=== PATIENT | female | born 1960 | race Caucasian/White ===

== ENCOUNTER → 2018-03-12 17:30 | Outpatient (CLI) | payer OTHER, SELFPAY | PROVIDERS: Visit Provider Obstetrics & Gynecology | DX: N32.81 Overactive bladder (principal) | CPT/HCPCS: 87086 ==

== ENCOUNTER → 2018-04-06 13:00 | Outpatient (CLI) | payer OTHER, SELFPAY | PROVIDERS: Visit Provider Obstetrics & Gynecology | DX: N95.0 Postmenopausal bleeding (principal) | CPT/HCPCS: 76830; 76856; 93976 ==

== ENCOUNTER → 2018-04-17 09:58 | Outpatient (CLI) | payer OTHER, SELFPAY ==
--- NOTE | 2018-04-16 | EMB_PTH ---
PATIENT: ROBBIN TINEO LOC: [facility] U#:[id number] AGE/SX: 65/F ROOM: RE04/17/[address]: Dr. Gautam Rivera MD : 1960 BED: DIS: SPEC #: [id number] RECD: 04/16/18 23:38 STATUS: SHAJI REArlin #: [id number] YEFRI: 04/16/18 00:[address]: Gautam Rivera DEPT: SURGICAL PATHOLOGY RECD BY: Shawn Harvey ENTERED: 04/17/18 10:31 SP TYPE: ENDOM BX/C BEENA DR: Dr. Lidia Segura MD Tissues: Endometrium, NOS Procedures: Surgery Specimen Level IV HEADER OPERATION: Endometrial biopsy PRE-OP DIAGNOSIS: Postmenopausal bleeding TISSUE SUBMITTED: Endometrial lining MICROSCOPIC DIAGNOSIS Endometrium, biopsy: Rare strips of benign, superficial endometrium and mucus. AM:deric 04/20/18 MICROSCOPIC DESCRIPTION Slides are reviewed. GROSS DESCRIPTION Received is one container labeled with the patient's name and not further designated. The specimen consists of multiple irregular fragments of pink-red soft tissue measuring in aggregate 2.5 x 1.5 x 0.1 cm. The specimen is totally submitted in one cassette. MATIAS:deric 04/17/18 TC: 5 CPT: 54934
== END ==
PROVIDERS: Visit Provider Obstetrics & Gynecology
DX: N95.0 Postmenopausal bleeding (principal)
CPT/HCPCS: 88305

== ENCOUNTER → 2018-10-05 14:54 | Outpatient (CLI) | payer OTHER, SELFPAY ==
--- NOTE | 2018-10-05 14:57 | BI_ITS ---
MAMMOGRAPHY - BILATERAL SCREENING REASON FOR EXAM: Female, 58 years old. Routine annual screening examination. PERTINENT HISTORY: Mother with breast cancer. Aunt with breast cancer. TECHNIQUE: Digital bilateral breast maty (3D mammographic acquisition) in the CC and MLO projections. 2-D mediolateral oblique (MLO) and craniocaudad (CC) views of both breasts were obtained. CAD: Full Field Digital Mammography with Computer Added Detection was performed. COMPARISON: No comparison mammograms available at this time. If any prior films become available, an addendum to this report can be generated. FINDINGS: Breast Composition: There are scattered areas of fibroglandular density. There are no dominant masses or suspicious calcifications. Benign appearing bilateral axillary lymph nodes. No other significant abnormalities are identified. BI/SCREENING MAMM (CAD), BILAT IMPRESSION: Negative screening mammogram. Yearly followup mammogram recommended. (A) ASSESSMENT CATEGORY: BIRADS Category 2: Benign. A letter regarding these results will be sent to the patient by the facility within 30 days. Approximately 10% of breast cancers are not detected by mammography. A normal mammogram should not delay biopsy of a clinically suspicious abnormality. [id number] Electronically Signed: Charly Varela, at 14:55 EST , Service support ,
== END ==
PROVIDERS: Referring Provider Obstetrics & Gynecology; Visit Provider Obstetrics & Gynecology
DX: Z12.31 Encounter for screening mammogram for malignant neoplasm of breast (principal)
CPT/HCPCS: 77063; 77067

== ENCOUNTER → 2019-02-16 13:22 | Outpatient (CLI) | payer OTHER, SELFPAY ==
[2019-02-04 11:01] VITALS: BMI 35.6
--- NOTE | 2019-02-16 13:25 | US_ITS ---
STUDY: ULTRASOUND OF THE FEMALE PELVIS - COMPLETE CLINICAL: Female, 59 years old. Postmenstrual bleeding, pelvic pain, fibroids. LMP: Unknown. TECHNIQUE: Transabdominal and Transvaginal, the latter used to optimize detail. TECHNICAL QUALITY: Adequate. COMPARISON: Ultrasound April 06, 2018. FINDINGS: The uterus is anteverted and is in a midline position. The uterus measures 12.3 x 6.2 x 6.5 cm. There are small Nabothian cysts of the cervix. The endometrium measures 6 mm in thickness, and is hyperechoic. There is no demonstrated endometrial mass. There are too numerous to count incompletely defined heterogeneous masses in the myometrium consistent with fibroids. The first measured is in the right anterior upper body of the uterus, measuring 2.6 x 2.9 x 1.6 cm. Another is in the right fundus, measuring 2.0 x 1.7 x 2.1 cm. A third is a subserosal posterior fundal fibroid measuring 3.2 x 3.5 x 3.0 cm. A fourth is a left-sided fibroid in the body of the uterus that contains a few macrocalcifications, measuring 2.8 x 3.1 x 3.6 cm. I.U.D. - The patient does not have an I.U.D. The right ovary is visualized. The right ovary measures 3.9 x 3.0 x 2.8 cm. There is no right ovarian cyst or ovarian mass. There is no visualized right adnexal mass or complex lesion. There is normal arterial and normal venous vascularity. The left ovary is visualized. The left ovary measures 6.1 x 4.4 x 4.0 cm. This includes an eccentrically positioned 2.3 x 3.7 x 1.9 cm cyst. There is no visualized left adnexal mass or complex lesion. There is normal arterial and normal venous vascularity. There is no fluid in the cul-de-sac. The pre void volume of the bladder was 141 ml. Polycystic ovary disease: No. US/Transvaginal Non- IMPRESSION: 1. Enlarged, fibroid uterus, as noted. 2. 3.7 cm left ovarian cyst. The right ovary is unremarkable. Electronically Signed: Migel Kong MD at 15:20 EDT , Service support ,
--- NOTE | 2019-02-16 13:25 | US_ITS ---
STUDY: ULTRASOUND OF THE FEMALE PELVIS - COMPLETE CLINICAL: Female, 59 years old. Postmenstrual bleeding, pelvic pain, fibroids. LMP: Unknown. TECHNIQUE: Transabdominal and Transvaginal, the latter used to optimize detail. TECHNICAL QUALITY: Adequate. COMPARISON: Ultrasound April 06, 2018. FINDINGS: The uterus is anteverted and is in a midline position. The uterus measures 12.3 x 6.2 x 6.5 cm. There are small Nabothian cysts of the cervix. The endometrium measures 6 mm in thickness, and is hyperechoic. There is no demonstrated endometrial mass. There are too numerous to count incompletely defined heterogeneous masses in the myometrium consistent with fibroids. The first measured is in the right anterior upper body of the uterus, measuring 2.6 x 2.9 x 1.6 cm. Another is in the right fundus, measuring 2.0 x 1.7 x 2.1 cm. A third is a subserosal posterior fundal fibroid measuring 3.2 x 3.5 x 3.0 cm. A fourth is a left-sided fibroid in the body of the uterus that contains a few macrocalcifications, measuring 2.8 x 3.1 x 3.6 cm. I.U.D. - The patient does not have an I.U.D. The right ovary is visualized. The right ovary measures 3.9 x 3.0 x 2.8 cm. There is no right ovarian cyst or ovarian mass. There is no visualized right adnexal mass or complex lesion. There is normal arterial and normal venous vascularity. The left ovary is visualized. The left ovary measures 6.1 x 4.4 x 4.0 cm. This includes an eccentrically positioned 2.3 x 3.7 x 1.9 cm cyst. There is no visualized left adnexal mass or complex lesion. There is normal arterial and normal venous vascularity. There is no fluid in the cul-de-sac. The pre void volume of the bladder was 141 ml. Polycystic ovary disease: No. US/Pelvic (Non ) IMPRESSION: 1. Enlarged, fibroid uterus, as noted. 2. 3.7 cm left ovarian cyst. The right ovary is unremarkable. Electronically Signed: Migel Kong MD at 15:20 EDT , Service support ,
== END ==
PROVIDERS: Referring Provider Obstetrics & Gynecology; Visit Provider Obstetrics & Gynecology
DX: D25.9 Leiomyoma of uterus, unspecified (principal); N95.0 Postmenopausal bleeding; R10.2 Pelvic and perineal pain
CPT/HCPCS: 76830; 76856; 93976

== ENCOUNTER → 2019-04-14 17:05 | Outpatient (CLI) | payer OTHER, SELFPAY ==
--- NOTE | 2019-04-14 | EMB_PTH ---
PATIENT: ROBBIN TINEO LOC: [facility] U#:[id number] AGE/SX: 65/F ROOM: RE04/14/[address]: ZONIA Bauer : 1960 BED: DIS: SPEC #: [id number] RECD: 04/14/19 16:25 STATUS: SHAJI RAFAT #: [id number] YEFRI: 04/14/19 00:[address]: Rylee Hinson NP DEPT: SURGICAL PATHOLOGY RECD BY: Som Diaz ENTERED: 04/15/19 07:40 SP TYPE: ENDOM BX/C BEENA DR: Dr. Lidia Segura MD Tissues: Endometrium, NOS Procedures: Surgery Specimen Level IV HEADER OPERATION: Endometrial biopsy PRE-OP DIAGNOSIS: Postmenopausal bleeding TISSUE SUBMITTED: Endometrial biopsy MICROSCOPIC DIAGNOSIS Endometrial biopsy: Fragments of superficial benign endometrial tissue. Fragments of benign ecto- and endocervical epithelium. Negative for hyperplasia. SJ:chayito 04/16/19 COMMENT Correlation with clinical findings and appropriate follow up are necessary. MICROSCOPIC DESCRIPTION Slides are reviewed. GROSS DESCRIPTION Received is one container labeled with the patient's name and not further designated. The specimen consists of multiple fragments of hemorrhagic soft tissue mixed with mucoid tissue that in aggregate measure 2 x 2 x 0.2 cm. The specimen is totally submitted in one cassette. / SJ:chayito 04/15/19 TC:4 CPT: 60046
[2019-04-14 15:44] VITALS: BMI 36.6
== END ==
PROVIDERS: Referring Provider Nurse Practitioner Women's Health; Visit Provider Nurse Practitioner Women's Health
DX: N95.0 Postmenopausal bleeding (principal)
CPT/HCPCS: 88305

== ENCOUNTER 2019-07-13 05:26 | Day surgery (SDC) | payer OTHER, SELFPAY ==
[2019-02-04 11:01] VITALS: BMI 35.6
[2019-06-28 12:06] VITALS: BMI 36.6
--- NOTE | 2019-07-12 10:00 | EKG12_ITS ---
Test Reason : PRE-OP Blood Pressure : / mmHG Vent. Rate : 060 BPM Atrial Rate : 060 BPM P-R Int : 174 ms QRS Dur : 082 ms QT Int : 406 ms P-R-T Axes : 048 008 031 degrees QTc Int : 406 ms Normal sinus rhythm Cannot rule out Inferior infarct , age undetermined Abnormal ECG Confirmed by ZAKIYA BUTLER, GABBI ([id number]), supervising editor trailer IMTIAZ TREJO ([id number]) on 07/13/2019 11:48:47 AM Referred By: Wanda Palma Confirmed By:GABBI SIGALA MD
[2019-07-12 10:57] LABS: Hematocrit 40.2 % (37-47); Hemoglobin 13.5 g/dL (12.0-15.0); Mean Corp Hgb Conc 33.6 g/dL (32-36); Mean Corpuscular Hgb 29.5 pg (27.0-32.0); Mean Platelet Vol. 9.7 fl (6.2-12.0); Platelet Count 259 K/mm3 (150-450); RBC Distribution Width CV 12.9 % (11.6-14.6); RBC Distribution Width SD 41.3 fl (35.1-43.9); Red Blood Count 4.57 M/mm3 (4.2-5.4); White Blood Count 8.4 K/mm3 (4.4-11.0)
[2019-07-13] VITALS (15 sets, daily range): BP systolic 104–155; BP diastolic 59–84; PULSE 64–95; RESP 16–18; TEMP 36.1–37; O2SAT 94–100; BMI 36.9
--- NOTE | 2019-07-13 04:43 | PCM.HPOB.BLA ---
- Problem List (1) Left ovarian cyst Status: Acute Comment: 3.7 cm- remove ovary if still present. (2) Lichen sclerosus Status: Acute (3) Overactive bladder Status: Acute Comment: no treatment at this time due to cost (4) Post-menopausal bleeding Status: Acute Comment: normal biposy likely secondary to fibroids. (5) Uterine fibroid Status: Acute Qualifiers: Comment: plan L[facility] BS and possible left oophorectomy cysto History and Physical Date of Admission: 07/13/19 Intake Vital Signs 06/28/19 Body Mass Index (BMI) 36.6 06/28/19 Height 5 ft 1 in 06/28/19 Weight: 193 lb 4 oz 06/28/19 Body Mass Index (BMI) 36.5 06/28/19 Blood Pressure 150/80 H Intake Visit Reasons: MAREK CONNORS RS [employer] Room Dental Technician Required: No Is patient in pain?: No Allergies No Known Allergies Allergy (Verified 06/28/19 12:06) Medications clobetasol 0.05 % topical ointment 1 applic TOPICAL QHS #30 g 02/04/19 [Rx Confirmed 06/28/19] mirabegron ER 25 mg tablet,extended release 24 hr 25 mg PO DAILY 04/14/19 [History Confirmed 06/28/19] Is last menstrual period known: No Post menopausal: No Patient : No : [facility] History Carpal tunnel syndrome of right wrist (Acute) History of 2 sections (Acute) History of knee replacement procedure of right knee (Acute) S/P arthroscopic surgery of left knee (Acute) Family History Mother Breast cancer Hypertension Diabetes Heart disease Brother Cancer Myocardial infarction Father Diabetes Social History (Updated 06/28/19 @ 12:17 by Wanda Palma MD) number of children: 3 current occupational status: employed current occupation: [employer] in [employer] Smoking Status: Never smoker alcohol intake: never substance use type: does not use diet: other caffeine: Yes what type of physical activity do you participate in: none seatbelt use: always do you feel safe at home: Yes 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 she has an enlarged uterus with multiple fibroids. she has some urinary issues and has seen urogyn for this. Pregancy History 4 Elective abortions Hx Para 3 Spontaneous abortions Hx # Term Pregnancies Ectopic pregnancies Hx # Pregnancies Multiple births # of living children 3 Past Pregnancies Del. Date Name GA/Weeks Outcome Route Bth Weight Infant Gen Labor Lgth Anesthesia Del Locatn Provider FOB Unknown Bren 1982 Unknown Greer 1985 Unknown Daniela 1990 ROS Const Constitutional: Denies fatigue, fever(s), headache(s), increased appetite, poor appetite, weight gain or weight loss Cardio Card: Denies chest pain Resp Resp: Denies cough or dyspnea GI GI: Reports as per HPI; denies abdominal pain, constipation, nausea or vomiting : Reports urinary frequency, urinary incontinence and urinary urgency; denies nipple discharge Skin Skin/Breast: Denies nipple discharge Exam Const General: cooperative, healthy appearing, comfortable, no acute distress, well developed Orientation: alert HENMT Head: normal to inspection, normocephalic Neck Neck: normal visual inspection, trachea midline Thyroid: thyroid normal Resp Effort & Inspection: normal respiratory effort GI Inspection: normal to inspection, non-distended Palpation: soft, no hepatosplenomegaly General: bladder normal to palpation External Female Exam: normal appearance of the urethra Urethra: normal appearance of the urethra Speculum Exam - Vagina: normal appearance of the vagina, normal vaginal discharge Speculum Exam - Cervix: normal appearance of the cervix, nontender Bimanual Exam- Vagina & Uterus: bladder normal to palpation, No cervical tenderness Bimanual Exam- Adnexa, other: normal adnexae, adnexae mobile, no adnexal masses, pelvic support normal Pelvic Support: normal Other: left white lesion Skin General: no rashes or lesions noted Assessment & Plan Problems 1. Overactive bladder N32.81 no treatment at this time due to cost 2. Post-menopausal bleeding N95.0 normal biposy likely secondary to fibroids. 3. Intramural and submucous leiomyoma of uterus D25.1; D25.0 plan [facility] BS and possible left oophorectomy cysto 4. Lichen sclerosus L90.0 5. Left ovarian cyst N83.202 3.7 cm- remove ovary if still present. Plan After discussing the patient's diagnosis and treatment plan options, patient wishes to proceed with surgical management. I have discussed with the patient the risks, benefits, and alternatives of the procedure which include but are not limited to risks of anesthesia, bleeding, infection, possible damage to bowel, bladder, or surrounding vasculature which could lead to additional surgery to evaluate any complications. Patient agrees to procedure and wishes to proceed. ACOG/uptodate references given for additional information regarding procedure. Coding Level of Care Code No Charge Diagnoses Overactive bladder N32.81 Post-menopausal bleeding N95.0 Intramural and submucous leiomyoma of uterus D25.1; D25.0 ??Uterine leiomyoma location: intramural and submucous Lichen sclerosus L90.0 Left ovarian cyst N83.202 UPDATE- I have seen the patient and performed any clinically relevant updates to the history and physical exam. Wanda Palma MD
[2019-07-13] MEDS: Enoxaparin 40 MG/0.4 ML Syringe SC (05:30)
[2019-07-13] MEDS: Scopolamine 1mg/72hr Patch 1 PATCH TRANSDERM. (05:30)
[2019-07-13] MEDS: dexAMETHasone 10 MG/ML Vial 8 MG IV (05:30)
[2019-07-13] MEDS: Celecoxib 200 MG Capsule 400 MG PO (05:30)
[2019-07-13] MEDS: Magnesium Sulfate 4gm/100mL 4 GM/100 ML IV.SOLN. IV (06:01)
[2019-07-13] MEDS: Lactated Ringers 1,000 ML 40 ML IV (06:02)
[2019-07-13] MEDS: Acetaminophen 500 MG Tablet 1000 MG PO ×3 (06:05→17:56)
[2019-07-13] MEDS: Phenazopyridine 95 MG Tablet 190 MG PO (06:05)
[2019-07-13] MEDS: Gabapentin 600 MG Tablet PO (06:06)
[2019-07-13 06:35] LABS: Bedside Glucose 64 mg/dL (70-110)
--- NOTE | 2019-07-13 07:30 | HYST_PTH ---
PATIENT: ROBBIN TINEO LOC[place] [facility] [place][id number] AGE/SX: 59/F ROOM: RE07/13/[address]: Dr. Wanda Palma MD : 1960 BED: DIS: 07/14/2019 SPEC #: [id number] RECD: 07/13/19 11:51 STATUS: SHAJI REArlin #: [id number] YEFRI: 07/13/19 07:[address]: Wanda Palma DEPT: SURGICAL PATHOLOGY RECD BY: Som Diaz ENTERED: 07/13/19 12:28 SP TYPE: HYSTERECT OTHR DR: MD Dr. Lidia Thao MD Tissues: Uterus, NOS Procedures: Surgery Specimen Level V HEADER OPERATION: ERAS, laparoscopic assisted vaginal hysterectomy PRE-OP DIAGNOSIS: Abnormal uterine bleeding, fibroids, left ovarian cyst TISSUE SUBMITTED: Uterus, cervix, bilateral fallopian tubes, left ovary MICROSCOPIC DIAGNOSIS Uterus, hysterectomy: Cervix - mild chronic inflammation. Endometrium - weakly proliferative endometrium. Myometrium - leiomyomas with degenerative change. Right and left fallopian tubes - no significant pathologic change. 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 AM:chayito 07/14/19 COMMENT Case has been reviewed in consultation with Dr. Garcia who concurs with the above diagnosis. IDC:SHADIA MICROSCOPIC DESCRIPTION Slides are reviewed. GROSS DESCRIPTION Received in fixative is one container labeled with the patient's name and designated uterus, cervix, bilateral fallopian tubes and left ovary. The specimen consists of a hysterectomy specimen in multiple pieces consisting of pieces of uterus, detached cervix, bilateral fallopian tubes and ovary identified as left ovary. The left fallopian tube and ovary is attached to one of the larger pieces of uterus and the right fallopian tube is attached to one of the smaller pieces of uterus. The uterus with cervix weighs 191 gm. The portion containing the cervix and lower uterine segment measures 7 x 2 x 2 cm. The ectocervical mucosa cannot be identified. The external os is slit-like in contour. The endocervical canal measures 5.5 cm in length. The endocervical mucosa is duran, glistening and unremarkable. The largest piece of uterus measures 9 x 6 x 4 cm. The serosal surface is congested. The endometrial cavity in this piece of uterus measures 4 cm in length and 4 cm in width. The endometrium is duran, glistening without any mass lesion and measures <0.1 cm in thickness. Sectioning of this piece reveals multiple nodules. The largest nodule measures 3.5 cm in greatest dimension. Sections of these masses reveal duran whorled cut surfaces without areas of hemorrhage, necrosis or cystic degeneration. The uninvolved uterine wall measures up to 3.5 cm in thickness. The nodules are submucosal, intramural and subserosal in location. The smaller pieces of uterus measure in aggregate 10 x 7 x 4 cm. Some of these pieces also reveal multiple nodular masses. The largest mass in this piece measures 3 cm in greatest dimension. Sections of these masses reveal duran whorled cut surfaces without areas of hemorrhage, necrosis or cystic degeneration. The right fallopian tube measures 4.5 cm in length and 0.5 cm in diameter. The fimbrial end is identified. Sections reveal unremarkable cut surfaces. The left fallopian tube measures 5.5 cm in length and 0.5 cm in diameter. The fimbrial end is identified. Sections reveal unremarkable cut surfaces. The adjacent left ovary measures 7 x 5 x 4 cm and weighs 60 gm. The outer surface is smooth without any papillation. No tubo-ovarian adhesions are identified. The outer surface is inked black. The ovary measures 6.5 x 4.5 x 4 cm and weighs 60 gm. Sections reveal 90% of the ovary is replaced by a solid tumor mass measuring 6 x 4.5 x 4 cm. An area of necrosis, cystic degeneration and hemorrhage are not identified. Sections reveal duran-white solid area of cut surfaces. Sections also reveal a simple cyst filled with clear fluid measuring 1 cm in greatest dimension. Silver Brazer sections are submitted in 18?cassettes as follows: 1 & 2 - cervix, 3-6 - endomyometrium, also containing nodular masses, 79??nodular masses, 10 - right fallopian tube, 11 - left fallopian tube, 12-18 - left ovary (12-14 - tumor, 15 - tumor with simple cyst, 16 & 17 - tumor with unremarkable portion of ovary, 18 - uninvolved portion of ovary). / SHADIA:chyaito 07/13/19 TC: 1 CPT: 11446
[2019-07-13] MEDS: Cefazolin 2 GM in 0.9% Normal Saline 100 ML IV (07:35)
--- NOTE | 2019-07-13 07:51 | PCM.OPRPT ---
Problem List (1) Left ovarian cyst Status: Acute Comment: 3.7 cm- remove ovary if still present. (2) Lichen sclerosus Status: Acute (3) Overactive bladder Status: Acute Comment: no treatment at this time due to cost (4) Post-menopausal bleeding Status: Acute Comment: normal biposy likely secondary to fibroids. (5) Uterine fibroid Status: Acute Qualifiers: Comment: plan [facility] BS and possible left oophorectomy cysto Report of Operation Date of Procedure: 07/13/19 Pre-Operative Diagnosis: aub fibroids left ovarian cyst previous x 2 Post-Operative Diagnosis: same Surgery/Procedure Performed:: lavh bs left oophorectomy cysto Description of Surgical Findings:: enlarged fibroid uterus, severe vesicouterine adhesions abnormal appearing left ovarian cyst government contracts manager: Ivette Cueva Type of Anesthesia:: General Special Medications: thea Specimen's removed: uterus tubes left ovary Drains: abraham Estimated Blood Loss (mL): 250 Fluids Replaced: crystalloid Description of Procedure: Patient received preoperative antibiotics and SCDs were on preoperatively. Patient was taken back to the operating room and placed in the dorsal lithotomy position. General anesthesia was induced and patient was prepped and draped in normal sterile fashion. Uterine manipulator was placed inside the uterus and Abraham catheter placed in the bladder. The umbilicus was grasped with towel clamps and an intraumbilical incision was made after injecting with quarter percent Marcaine and a Veress needle entered into the abdomen confirmed to be intra-abdominal with a low opening pressure. Abdomen was insufflated with CO2 gas and the Veress needle removed and the 5 mm trocar was placed under direct visualization without complication. Right and left lower quadrants were transilluminated and injected with quarter percent Marcaine and 5 mm ports placed under direct visualization. Pelvis was well visualized see operative findings for additional information. Bilateral fallopian tubes were identified and transected with the LigaSure device across the mesosalpinx to the level of the utero-ovarian ligament which was also transected with the LigaSure device. left ovary was removed in addition going across the IP ligament. The broad ligament was opened up by transecting the round ligament bilaterally and skeletonizing the uterine vessels bilaterally and creating a bladder flap using the LigaSure device. there were extensive adhesions encountered which were taken down with hydrodissection, sharply, and bluntly. aproximately 50 minutes were spent on adhesiolysis. The uterine arteries were transected bilaterally with good visualization of the bladder and the ureters were seen to be inferior lateral to the operative area. Attention was then paid to the vaginal portion of the procedure and the cervix was grasped with Delon clamps and circumferentially injected with dilute vasopressin. A circumferential incision was made and the vaginal mucosa was mobilized off posteriorly and the cul-de-sac entered into sharply and a longneck speculum placed. The anterior cul-de-sac was then identified and entered into sharply. The uterosacral ligaments were clamped cut and suture ligated with 0 Monocryl bilaterally followed by the cardinal ligaments which were clamped cut and suture ligated bilaterally with 0 Monocryl. The uterus serially descended and was removed without difficulty with minimal morcellation. Pelvic sidewall pedicles were checked and noted to have excellent hemostasis. The vaginal mucosa was reapproximated incorporating the posterior peritoneum. This was reapproximated using 0 Vicryl [id number] sutures. Excellent hemostasis was noted. The cystoscopy was then performed and bilateral ureteral strong spray was noted and the bladder was noted to have no abnormality or lesions seen. Abraham catheter was replaced and then attention paid to the abdominal portion of the procedure again. The pelvis and cul-de-sac was well visualized and no significant active bleeding noted but some raw areas were seen on the peritoneum and therefore Thea was applied. Pressure was taken down and the areas visualized and noted of excellent hemostasis. All ports were removed under direct visualization without complication and the abdomen was desufflated of air. The instruments removed from the abdomen and the vagina vaginal sweep was negative. Port sites on the abdomen were closed with 4-0 Monocryl interrupted sutures and Steri's and windows were applied. She was awoken and taken recovery in stable condition. Grafts/Implants Used: none - Complications none - Admit VTE Documentation VTE Present on Admission: No Multi Select Codes - Urinary/Genital Urinary/Genital CPT Codes: 11392 LAVH+BS/O >250gr Uterus
[2019-07-13] MEDS: Bupivacaine 0.25% 30 ML Vial (08:00)
[2019-07-13] MEDS: Lactated Ringers 1,000 ML 70 ML IV ×2 (08:30→12:45)
[2019-07-13] MEDS: Vasopressin 20 UNITS/ML Vial (09:00)
[2019-07-13] MEDS: Ondansetron 4 MG/2 ML Vial IV (09:25)
[2019-07-13] MEDS: Ketorolac 30 MG/ML Syringe IV ×2 (11:38→17:56)
[2019-07-13 12:30] LABS: Bedside Glucose 130 mg/dL (70-110)
--- NOTE | 2019-07-13 13:35 | PCM.DC.VHY ---
Discharge Diet: No Restrictions Discharge Activity: Return to Normal Activity, May Not Drive, May Shower May resume sexual activity in: 6-8 weeks Call your doctor if your incision/area has: Continuous Slow Oozing, Sudden Increased Bleeding, Increased Pain/ Swelling, Increased Redness, Foul Smelling Discharge Call your doctor if you observe: Fever of 101 or Higher, Inability to urinate, Inability to have a bowel movement, Using more than one pad per hour Allergies/Adverse Reactions: Allergies No Known Allergies Allergy (Verified 07/13/19 05:51) Medications to take at Discharge [place] 750 mg PO DAILY 07/06/19 [place]-3 Fatty Acids/Fish Oil [[place] 3 1,000 mg Softgel] 1 ea PO DAILY 07/06/19 Turmeric Root Extract [Turmeric Curcumin] 500 mg PO DAILY 07/06/19 Naproxen [Naprosyn] 250 - 500 mg PO Q8H PRN PRN #30 tab 07/13/19 Oxycodone HCl/Acetaminophen [Percocet 5-325] 1 - 2 tablet PO Q6H PRN PRN 7 Days #15 tablet 07/13/19 The following prescriptions were given: Naproxen [Naprosyn] 250 - 500 mg PO Q8H PRN PRN #30 tab PRN Reason: MILD PAIN Transmission Status: Pending to [place], [place] Oxycodone HCl/Acetaminophen [Percocet 5-325] 1 - 2 tablet PO Q6H PRN PRN 7 Days #15 tablet PRN Reason: Pain Transmission Status: Sent to [place], [place] Orders to be completed after discharge: Type & Screen Time Frame: 07/06/19, Facility: [facility], Location: Laboratory 12 Lead EKG [[facility]] Time Frame: 07/06/19, Facility: [facility], Location: Cardiovascular Services CBC-Complete Blood Cnt No Diff Time Frame: 07/06/19, Facility: [facility], Location: Laboratory Primary Care Physician: Lidia Segura MD [Primary Care Provider] - Test Results: Test results from this visit will be discussed in further detail at your follow-up appointment, if applicable. Please Follow Up With: Wanda Palma MD - [phone]
--- NOTE | 2019-07-13 13:41 | NURSING ---
BGT 66 PRIOR TO SURGERY RECHECKED UPON ARRIVAL TO MS3= 130.
[2019-07-13] MEDS: oxyCODONE 5 MG Tablet PO (14:53)
[2019-07-13] MEDS: Docusate Sodium 100 MG Capsule PO ×2 (14:56→21:57)
[2019-07-14] MEDS: Ketorolac 30 MG/ML Syringe IV ×3 (00:20→11:41)
[2019-07-14] MEDS: 0.9% Saline Lock 10 ML Syringe IV ×2 (00:20→06:10)
[2019-07-14] MEDS: Acetaminophen 500 MG Tablet 1000 MG PO ×2 (00:20→06:09)
[2019-07-14 04:15] VITALS: BP 114/67; PULSE 86; RESP 16; TEMP 36.6; O2SAT 95
[2019-07-14 06:06] LABS: Hematocrit 37.1 % (37-47); Hemoglobin 12.4 g/dL (12.0-15.0); Mean Corp Hgb Conc 33.4 g/dL (32-36); Mean Corpuscular Hgb 29.1 pg (27.0-32.0); Mean Corpuscular Volume 87.1 fL (81-99); Mean Platelet Vol. 9.8 fl (6.2-12.0); Platelet Count 280 K/mm3 (150-450); RBC Distribution Width CV 13.2 % (11.6-14.6); RBC Distribution Width SD 41.5 fl (35.1-43.9); Red Blood Count 4.26 M/mm3 (4.2-5.4); White Blood Count 18.7 K/mm3 (4.4-11.0)
[2019-07-14 08:07] VITALS: O2SAT 95
[2019-07-14 08:20] VITALS: BP 134/68; PULSE 71; RESP 18; TEMP 36.7; O2SAT 96
--- NOTE | 2019-07-14 08:27 | PN.OBGYN_ITS ---
Subjective: doing well postoperatively, pain controlled. Up to bedside. No CP, SOB. - Physical Exam Vitals/I&O's: Vital Signs Temp Pulse Resp BP Pulse Ox 98.0 F 71 18 134/68 H 96 07/14/19 08:20 07/14/19 08:20 07/14/19 08:20 07/14/19 08:20 07/14/19 08:20 Oxygen Flow Rate (L/min) 6 Oxygen Delivery Method Room Air Weight: 195 lb 8.8 oz Body Mass Index (BMI) 36.9 Finger Stick Blood Glucose 64 Intake and Output for Last 24 Hours 07/12/19 07/13/19 07/14/19 23:59 23:59 23:59 Intake Total 2768.38 / 2768.38 1114.33 / 1114.33 Output Total 2550 / 2550 1550 / 1550 Balance 218.38 / 218.38 -435.67 / -435.67 General: Alert, Oriented x3 Abdomen: Soft, Non-Distended, - - Dressings dry and intact. Laboratory Results 07/13/19 12:23: POC Glucose 130 H 07/14/19 05:02: WBC 18.7 H, RBC 4.26, Hgb 12.4, Hct 37.1, MCV 87.1, MCH 29.1, MCHC 33.4, RDW Std Deviation 41.5, RDW Coeff of Nahed 13.2, Plt Count 280, MPV 9.8 Current Medications Acetaminophen (Tylenol) 1,000 mg PO Q6 [facility] Last Admin: 07/14/19 06:09 Dose: 1,000 mg Documented by: Docusate Sodium (Colace) 100 mg PO BID [facility] Last Admin: 07/13/19 21:57 Dose: 100 mg Documented by: Enoxaparin Sodium (Lovenox) 40 mg SC DAILY [facility] Lactated Ringer's () 1,000 mls @ 70 mls/hr IV .[id number] [facility] Stop: 07/14/19 10:27 Last Admin: 07/14/19 06:36 Dose: Not Given Documented by: Ketorolac Tromethamine (Toradol) 30 mg IV Q6 [facility] Stop: 07/14/19 18:01 Last Admin: 07/14/19 06:10 Dose: 30 mg Documented by: Magnesium Oxide (Mag-Ox 400) 400 mg PO DAILY PRN PRN PRN Reason: Constipation Nutritional Formula (Lactose Free) (Ensure Enlive) 120 ml PO TIDCM GUILHERME Ondansetron HCl (Zofran Odt) 4 mg PO Q6H PRN PRN PRN Reason: NAUSEA Oxycodone HCl (Oxyir) 5 - 10 mg PO Q4H PRN PRN PRN Reason: Pain Score 4-10/10 Last Admin: 07/13/19 14:53 Dose: 10 mg Documented by: Sodium Chloride () 10 - 40 ml IV UD PRN PRN Reason: SALINE FLUSH Last Admin: 07/14/19 06:10 Dose: 10 ml Documented by: Medical Necessity - Tobacco Use Smoking Status: Never smoker Tobacco Use: Non-smoker Assessment/Plan All Active Problems (Last Reviewed 06/28/19 @ 12:05 by June Hall) Left ovarian cyst (Acute) Uterine fibroid (Acute) Lichen sclerosus (Acute) Post-menopausal bleeding (Acute) Overactive bladder (Acute) LAVH postop day #1 Routine care May DC cath Home once stable and voiding without difficulty.
[2019-07-14] MEDS: Enoxaparin 40 MG/0.4 ML Syringe SC (08:35)
[2019-07-14] MEDS: Docusate Sodium 100 MG Capsule PO (08:35)
--- NOTE | 2019-07-14 11:46 | NURSING ---
LATE ENTRY - ALEIDA SHEAPRD @ 1428
--- NOTE | 2019-07-14 12:31 | NURSING ---
dr milton notified of pt void 300ml after abraham DC'd. Order to DC pt home.
[2019-07-14 12:47] VITALS: BP 133/63; PULSE 79; RESP 18; TEMP 36.6; O2SAT 96
[2019-07-14 12:54] VITALS: BP 133/63; PULSE 79; RESP 18; TEMP 36.6; O2SAT 96
== END 2019-07-14 13:12 | disposition home or self-care (01) ==
LOC: SDC 05:26 → AC 05:27 → MS3 10:08
PROVIDERS: Referring Provider Obstetrics & Gynecology; Visit Provider Obstetrics & Gynecology
PROC: 0UT9FZZ Resection of Uterus, Via Natural or Artificial Opening With Percutaneous Endoscopic Assistance (ICD-10-PCS; CPT 58552; principal; 2019-07-13 07:05)
DX: D25.0 Submucous leiomyoma of uterus (principal); D25.1 Intramural leiomyoma of uterus; N83.202 Unspecified ovarian cyst, left side; N72 Inflammatory disease of cervix uteri; L90.0 Lichen sclerosus et atrophicus; N95.0 Postmenopausal bleeding; N32.81 Overactive bladder; Z78.0 Asymptomatic menopausal state; Z79.1 Long term (current) use of non-steroidal anti-inflammatories (NSAID); Z79.899 Other long term (current) drug therapy; Z86.718 Personal history of other venous thrombosis and embolism; Z96.651 Presence of right artificial knee joint
CPT/HCPCS: 58552; 36415; 82962; 85027; 86850; 86900; 86901; 88307; 93005; 94762; 99251; J7120; A4216; G0463; J2405

== ENCOUNTER → 2019-10-11 07:55 | Outpatient (CLI) | payer OTHER, SELFPAY ==
[2019-08-23 11:15] VITALS: BMI 36.9
--- NOTE | 2019-10-11 07:56 | BI_ITS ---
MAMMOGRAPHY - BILATERAL SCREENING REASON FOR EXAM: Female, 59 years old. Routine annual screening examination. PERTINENT HISTORY: Mother with breast cancer. Aunt with breast cancer. TECHNIQUE: Digital bilateral breast marli (3D mammographic acquisition) in the CC and MLO projections. 2-D mediolateral oblique (MLO) and craniocaudad (CC) views of both breasts were obtained. CAD: Full Field Digital Mammography with Computer Added Detection was performed. COMPARISON: Comparison is made with prior study dated October 05, 2018. FINDINGS: Breast Composition: There are scattered areas of fibroglandular density. There are no dominant masses or suspicious calcifications. Stable benign-appearing bilateral axillary lymph nodes. No other significant abnormalities are identified. There has been no significant change since the prior study. BI/SCREEN MAMM (CAD) W/MARLI BILAT IMPRESSION: Stable bilateral screening mammogram. Yearly follow-up mammogram recommended. (A) ASSESSMENT CATEGORY: BIRADS Category 2: Benign. A letter regarding these results will be sent to the patient by the facility within 30 days. Approximately 10% of breast cancers are not detected by mammography. A normal mammogram should not delay biopsy of a clinically suspicious abnormality. [id number] Electronically Signed: Charly Varela, at 9:14 EST , Service support ,
[2019-10-11 09:56] LABS: Vitamin D,25 Hydroxy 34.4 ng/mL (29.95-100.01)
[2019-10-11 09:57] LABS: Cholesterol 181 mg/dL (200); Glucose 98 mg/dL (74-106); High Density Lipoprotein 62 mg/dL; Thyroid Stim Hormone (TSH) 1.44 uIU/mL (0.358-3.74); Triglycerides 76 mg/dL; Very Low Density Lipoprotein 15 mg/dL (5-40)
== END ==
LOC: OPBI 07:56 → PAVLAB 08:44
PROVIDERS: Referring Provider Obstetrics & Gynecology; Visit Provider Obstetrics & Gynecology
DX: Z12.31 Encounter for screening mammogram for malignant neoplasm of breast (principal); E07.9 Disorder of thyroid, unspecified; Z13.220 Encounter for screening for lipoid disorders; Z13.1 Encounter for screening for diabetes mellitus; Z13.21 Encounter for screening for nutritional disorder
CPT/HCPCS: 36415; 77063; 77067; 80061; 82306; 82947; 84443

== ENCOUNTER → 2020-11-07 15:47 | Outpatient (CLI) | payer OTHER, SELFPAY ==
[2019-08-23 11:15] VITALS: BMI 36.9
--- NOTE | 2020-11-07 15:48 | BI_ITS ---
MAMMOGRAPHY - BILATERAL SCREENING REASON FOR EXAM: Female, 60 years old. Routine annual screening examination. PERTINENT HISTORY: Mother with breast cancer. Aunt with breast cancer. TECHNIQUE: Digital bilateral breast marli (3D mammographic acquisition) in the CC and MLO projections. 2-D mediolateral oblique (MLO) and craniocaudad (CC) views of both breasts were obtained. CAD: Full Field Digital Mammography with Computer Added Detection was performed. COMPARISON: Comparison is made with prior study dated 10/11/2019 and 10/05/2018. FINDINGS: Breast Composition: There are scattered areas of fibroglandular density. There are no dominant masses or suspicious calcifications. Stable benign-appearing bilateral axillary lymph nodes. No other significant abnormalities are identified. There has been no significant change since the prior study. BI/SCRN MAMM (CAD)W/MARLI BILAT IMPRESSION: Stable bilateral screening mammogram. Yearly follow-up mammogram recommended. (A) ASSESSMENT CATEGORY: BIRADS Category 2: Benign. A letter regarding these results will be sent to the patient by the facility within 30 days. Approximately 10% of breast cancers are not detected by mammography. A normal mammogram should not delay biopsy of a clinically suspicious abnormality. [id number] Electronically Signed: Charly Varela MD at 8:12 EDT , Service support ,
== END ==
PROVIDERS: Referring Provider Obstetrics & Gynecology; Visit Provider Obstetrics & Gynecology
DX: Z12.31 Encounter for screening mammogram for malignant neoplasm of breast (principal)
CPT/HCPCS: 77063; 77067

== ENCOUNTER 2021-11-08 16:26 | Outpatient (CLI) | payer OTHER, SELFPAY ==
--- NOTE | 2021-11-08 16:26 | BI_ITS ---
MAMMOGRAPHY - BILATERAL SCREENING 3-D TOMOSYNTHESIS REASON FOR EXAM: Female, 61 years old. screening -- schedule after 11/07/20 NO BREAST IMPLANTS PERTINENT HISTORY: No significant family history. TECHNIQUE: 2-D mammograms and 3-D Tomosynthesis of the breast (s) were performed. CAD was performed. COMPARISON: 11/07/2020 FINDINGS: The breast composition is composed of scattered fibroglandular density. Scattered benign calcifications are seen. No dense spiculated masses or suspicious microcalcifications are identified. No architectural distortion is identified. There is no skin thickening or retraction. There has been no significant change since the prior study. BI/SCRN MAMM (CAD)W/MARLI BILAT IMPRESSION: No mammographic signs of malignancy. Routine yearly mammograms recommended. ASSESSMENT CATEGORY: BIRADS Category 1: Negative. A letter regarding these results will be sent to the patient by the facility within 30 days. FOLLOW UP RECOMMENDATION: Yearly follow up mammogram recommended. (A) Approximately 10% of breast cancers are not detected by mammography. A normal mammogram should not delay biopsy of a clinically suspicious abnormality. Electronically Signed: Sam Lorenz MD at 17:09 EDT ,
== END 2021-11-08 23:59 | disposition home or self-care (01) ==
LOC: OPBI 16:26
PROVIDERS: Visit Provider Obstetrics & Gynecology
DX: Z12.31 Encounter for screening mammogram for malignant neoplasm of breast (principal)
CPT/HCPCS: 77063; 77067

== ENCOUNTER → 2022-01-17 | Outpatient (CLI) | payer OTHER, SELFPAY ==
[2022-01-17 08:44] LABS: Absolute Neutrophil Count 4.2 X10^3/uL (2.0-7.7); Basophil# 0.05 X10^3/uL; Basophil% 0.7 % (0-1); Eosinophil# 0.12 X10^3/uL; Eosinophils% 1.7 % (0-5); Hematocrit 41.6 % (37-47); Hemoglobin 14.3 g/dL (12.0-15.0); Lymphocyte % 32.5 % (19-41); Mean Corp Hgb Conc 34.4 g/dL (32-36); Mean Corpuscular Hgb 29.2 pg (27.0-32.0); Mean Corpuscular Volume 84.9 fL (81-99); Mean Platelet Vol. 9.3 fl (6.2-12.0); Monocyte# 0.39 X10^3/uL; Monocyte% 5.5 % (0-10); NRBC Flagged by Analyzer 0 % (0-5); Neutrophil # 4.19 X10^3/uL (2.7-7.7); Neutrophil % 59.3 % (47-70); Platelet Count 293 K/mm3 (150-450); RBC Distribution Width CV 12.8 % (11.6-14.6); RBC Distribution Width SD 39.4 fl (35.1-43.9); White Blood Count 7.1 K/mm3 (4.4-11.0)
[2022-01-17 09:37] LABS: AST(SGOT) 18 U/L (15-37); Alanine Aminotransfer ALT/SGPT 22 U/L (13-56); Albumin, Serum 3.7 g/dL (3.2-5.0); Alkaline Phosphatase 71 U/L (45-117); Anion Gap 7 (5-15); BUN 14 mg/dL (7-18); BUN/Creat Ratio 20.6 RATIO (10-20); Calcium,Total 8.8 mg/dL (8.5-10.1); Chloride 107 mmol/L (98-107); Cholesterol 179 mg/dL (200); Creatinine, Serum 0.68 mg/dL (0.55-1.02); EST Glomerular Filtration Rate 94 mL/min (>60); Est Glom Filt Rate - Afr Amer 114 mL/min (>60); Globulin 3.6 g/dL (2.2-4.2); Glucose 108 mg/dL (74-106); High Density Lipoprotein 62 mg/dL; Potassium 3.8 mmol/L (3.5-5.1); Protein, Total 7.3 g/dL (6.4-8.2); Sodium Level 142 mmol/L (136-145); Thyroid Stim Hormone (TSH) 1.28 uIU/mL (0.358-3.74); Triglycerides 104 mg/dL; Very Low Density Lipoprotein 21 mg/dL (5-40)
== END | disposition home or self-care (01) ==
LOC: PAVLAB 08:25
PROVIDERS: Referring Provider Obstetrics & Gynecology; Visit Provider Obstetrics & Gynecology
DX: Z01.419 Encounter for gynecological examination (general) (routine) without abnormal findings (principal)
CPT/HCPCS: 36415; 80053; 80061; 84443; 85025

== ENCOUNTER 2022-06-14 08:01 | Day surgery (SDC) | payer OTHER, SELFPAY ==
[2022-06-14] VITALS (7 sets, daily range): BP systolic 95–122; BP diastolic 55–79; PULSE 60–75; RESP 16–18; TEMP 34.6–36.4; O2SAT 95–100; BMI 38.3
[2022-06-14] MEDS: Lactated Ringers 1,000 ML 15 ML IV (08:15)
--- NOTE | 2022-06-14 08:48 | HP.PCM_ITS ---
HPI - General HPI Narrative ROBBIN TINEO, is a 62 F who presents for screening colonoscopy. Patient has never had a colonoscopy. Patient denies any abdominal pain or blood in the stool. She denies blood thinner use. [facility] Medical History (Updated 06/12/22 @ 13:16 by Aib Cruz) DVT (deep venous thrombosis) Heartburn Hypertension Non-smoker Post-menopausal Wears glasses Home Medications NK 05/06/22 [History Last Taken Unknown] Allergy/AdvReac Type Severity Reaction Status Date / Time No Known Allergies Allergy Verified 06/14/22 08:29 Family History Mother Breast cancer Hypertension Diabetes Heart disease Brother Cancer Myocardial infarction Father Diabetes Surgical History (Updated 06/12/22 @ 13:16 by bAi Cruz) Carpal tunnel syndrome of right wrist History of 2 sections History of knee replacement procedure of right knee Hx of carpal tunnel repair Hx of total knee replacement S/P arthroscopic surgery of left knee S/P laparoscopic assisted vaginal hysterectomy (LAVH) (~07/13/19) Social History number of children: 3 current occupational status: employed current occupation: [employer] Smoking Status: Never smoker alcohol intake: never substance use type: does not use diet: other caffeine: Yes what type of physical activity do you participate in: none seatbelt use: always do you feel safe at home: Yes 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 Past Medical/Surgical History Planned Operation Planned Operative Procedure/s: CSCOPE S.O.S: No Previous Hospitalizations/Surgeries HX Hospitalizations: Yes (KNEE REPLACEMENT 01/21/22) HX of Surgeries: csection x2 carpal tunnel right left knee scope r tkr d&c hysteroscopy 2011 Any Problems With Anesthesia: No You/Your Family Experience Fever (Hyperthermia) With Anes: No Cholinesterase deficiency: No Cardiovascular Hx Chest Pain within Last 2 months: No Hx of Irregular Heartbeat and/or Afib: No Hx Heart Attack: No Hx Congestive Heart Failure: No Hx Rheumatic Fever: No Hx Hypertension: No Hx Internal Defibrillator: No Hx Pacemaker: No Hx Cardiac Catheterization: No Hx Cardiac Surgery/Stents/Etc.: No Hx Stress Test: No Hx Pain in Legs when Walking/Leg Cramps: Yes (left knee) Respiratory Chronic Cough: No HX of Shortness of Breath: No Hoarseness: No Hx Chronic Obstructive Pulmonary Disease (COPD): No Hx Asthma: No Hx Emphysema: No Hx Sleep Apnea: No Hx Respiratory Tract Infection/Cold (presently): No Do You Snore Loudly (louder than talking or can be heard): Yes Do You Often Feel Tired/ Fatigued/ Sleepy Dring Daytime?: No Has Anyone Observed You Stop Breathing During Sleep?: No Result (for STOP score): Negative Hx Smoking: No Smoking Status: Never smoker Gastrointestinal Hx Gastroesophageal Reflux: No Hx Gastrointestinal Disorders: No Hx Gastrointestinal Bleed: No Hx Ulcer: No Hx Hiatal Hernia: No Difficulty Chewing/Swallowing: No Special diet followed at home: No Hx Unplanned Weight Loss of 20#: No HX Unplanned Weight Gain of 20#: No Neurological Hx Seizures: No HX Syncope/Blackout Spells/Unconsciousness: No Hx Transient Ischemic Attacks (TIA): No Hx Multiple Sclerosis: No Hx Parkinson's Disease: No Hx Head/Neck Injury: No Hx Headaches: No Hx Back Injury/Pain: No Recent Onset of Speech Difficulty: No Restless Legs: No Does patient have nerve stimulator: No Blood Disorder Hx Leukemia: No Bleeding Tendencies: No Hx Deep Vein Thrombosis: Yes (dvt leg 2016 after surgery) Hx High Cholesterol: No Blood Transmitted Disease: No Hx Hepatitis: No Hx Cirrhosis: No Hx Anemia: No Hx Blood Disorders: No Reproduction Is Patient Lactating: No Hx Hysterectomy: No Hx Tubal Ligation: No Are You Post Menopause: Yes Genitourinary Hx Renal Disease: No Musculoskeletal Hx Arthritis: Yes Hx Rheumatoid Arthritis: No Hx Gout: No Recent Onset of an Orthopedic Problem: No Endocrine Hx Diabetes: No Thyroid Disease: No Hx Steroid Therapy: Yes (knee injection 1 week ago) Psycho/Social Hx Substance Use: No Hx Alcohol Use: No Hx Anxiety: No Hx Depression: No Mental Illness: No Hx Dementia: No Miscellaneous Hx Cancer: No Recent Exposure to Contagious Disease: No Hx of C-Diff: No Any Loose Teeth: No Allergies No Known Allergies Allergy (Verified 06/14/22 08:29) Discharge Is Pt Admitted From a Half-Way, or a Longterm: No After D/C, Where Do you Plan to Go: Return Home Vital Signs Vital Signs Vital Signs: 06/14/22 08:29 10/21/22 08:29 Temperature 94.3 F L Temperature Source Temporal Pulse Rate 75 Respiratory Rate 18 Respiratory Pattern Normal Blood Pressure 122/73 H Blood Pressure Mean 89 Blood Pressure Source Monitor Blood Pressure Position Semi-Fowlers Blood Pressure Location Left Arm Pulse Ox 100 Oxygen Delivery Method Room Air Weight Weight: 202 lb 13.204 oz Body Mass Index (BMI) 38.3 Physical Exam Const alert and oriented x3 Resp normal respiratory effort and normal air movement Cardio regular rate and regular rhythm GI soft to palpation, non-tender and non-distended Assessment & Plan Assessment/Plan (1) Encounter for screening for malignant neoplasm of colon: PLAN: I explained endoscopy in detail to the patient. I explained the risks including but not limited to stroke or heart attack with anesthesia, perforation of the GI tract, bleeding, infection. I explained that any of these could necessitate further emergency surgery. The patient understands and all questions were answered sufficiently. The patient wishes to proceed with procedure. Milan Almonte MD Pager: [facility] [address] [place] [address] [address] [place] [address] Office: Surgery Risks - Colonoscopy Risks Include but are not Limited To: Risks include but are not limited to: Bleeding, perforation requiring further surgery, inability to complete colonoscopy requiring barium enema.
--- NOTE | 2022-06-14 09:00 | COLBX_PTH ---
PATIENT: ROBBIN TINEO LOC: EN U#:[id number] AGE/SX: 62/F ROOM: RE06/14/[address]: Dr. Milan Almonte MD : 1960 BED: DIS: 06/14/2022 SPEC #: [id number] RECD: 06/14/22 11:31 STATUS: SHAJI REArlin #: [id number] YEFRI: 06/14/22 09:[address]: Milan Almonte DEPT: SURGICAL PATHOLOGY RECD BY: Olesya Littlejohn ENTERED: 06/14/22 12:31 SP TYPE: COLON BX OTHR DR: No Primary Care Phys Tissues: A - COLON BIOPSY B - Rectum, NOS Procedures: Surgery Specimen Level IV HEADER OPERATION: Colonoscopy ? open access (MAC) PRE-OP DIAGNOSIS: Screening TISSUE SUBMITTED: A ? Random colonic biopsy, B ? Rectal polyp MICROSCOPIC DIAGNOSIS A. Colon, random biopsy: Melanosis coli. B. Rectal polyp, biopsy: Hyperplastic polyp. AM:chayito 06/17/2022 MICROSCOPIC DESCRIPTION Slides are reviewed. GROSS DESCRIPTION A - Received in fixative is one container labeled with the patient's name and designated random colon biopsy. The specimen consists of multiple irregular fragments of light duran soft tissue that in aggregate measure 1 x 0.5 x 0.1 cm. The specimen is totally submitted in one cassette. B - Received in fixative is one container labeled with the patient's name and designated rectal polyp. The specimen consists of one irregular fragment of light duran soft tissue that measures 0.2 x 0.2 x 0.1 cm. The specimen is totally submitted in one cassette. / AM:hcayito 06/14/2022 TC:5 CPT: 56315 x2
--- NOTE | 2022-06-14 09:21 | OP.CCLET_ITS ---
06/14/2022 No Primary Care Physician Re : Colonoscopy procedure for Sarita Ding Dear Care Physician This procedure was performed on Tuesday, June 14, 2022. My impressions and recommendations are as follows: Impressions : - Melanosis in the colon. Biopsied. - One polyp in the rectum, removed with a hot snare. Resected and retrieved. - The examination was otherwise normal on direct and retroflexion views. Recommendations : - Discharge patient to home. - Resume previous diet. - Continue present medications. - Await pathology results. - Repeat colonoscopy in 5 years for surveillance. My findings are described in the full procedure note, which is enclosed. If I can be of further assistance, please feel free to contact me at Doctor phone number(s): , Work: . Sincerely, Milan Almonte MD 06/14/2022 9:20:54 AM This report has been signed electronically.
--- NOTE | 2022-06-14 09:21 | OP.COLON_ITS ---
Patient Name: Sarita Ding Procedure Date: 06/14/2022 8:48 AM Date of : 1960 Age: 62 Procedure: Colonoscopy Indications: Screening for colorectal malignant neoplasm Providers: Milan Almonte MD Medicines: Monitored Anesthesia Care Patient Profile: This is a 62 year old female. Refer to note in patient chart for documentation of history and physical. Last Colonoscopy: none. The patient's first colonoscopy is today. Complications: No immediate complications. Procedure: Pre-Anesthesia Assessment: - Prior to the procedure, a History and Physical was performed, and patient medications and allergies were reviewed. The patient's tolerance of previous anesthesia was also reviewed. The risks and benefits of the procedure and the sedation options and risks were discussed with the patient. All questions were answered, and informed consent was obtained. Prior Anticoagulants: The patient has taken no previous anticoagulant or antiplatelet agents. After reviewing the risks and benefits, the patient was deemed in satisfactory condition to undergo the procedure. After I obtained informed consent, the scope was passed under direct vision. Throughout the procedure, the patient's blood pressure, pulse, and oxygen saturations were monitored continuously. The colonoscope was introduced through the anus and advanced to the cecum, identified by appendiceal orifice and ileocecal valve. The colonoscopy was performed without difficulty. The patient tolerated the procedure well. The quality of the bowel preparation was good. Scope In: 9:03:42 AM Scope Withdrawal Time 0 hours 6 minutes 29 seconds Scope Out: 9:16:48 AM Total Procedure Duration Time 0 hours 13 minutes 6 seconds Findings: A scattered area of melanosis was found in the entire colon. Biopsies were taken with a cold forceps for histology. A polyp was found in the rectum. The polyp was removed with a hot snare. Resection and retrieval were complete. The exam was otherwise without abnormality on direct and retroflexion views. Impression: - Melanosis in the colon. Biopsied. - One polyp in the rectum, removed with a hot snare. Resected and retrieved. - The examination was otherwise normal on direct and retroflexion views. Recommendation: - Discharge patient to home. - Resume previous diet. - Continue present medications. - Await pathology results. - Repeat colonoscopy in 5 years for surveillance. Procedure Code(s): --- Professional --- 23900, Colonoscopy, flexible; with removal of tumor(s), polyp(s), or other lesion(s) by snare technique 04034, 59, Colonoscopy, flexible; with biopsy, single or multiple Diagnosis Code(s): --- Professional --- Z12.11, Encounter for screening for malignant neoplasm of colon K63.89, Other specified diseases of intestine K62.1, Rectal polyp CPT copyright 2017 [employer]. All rights reserved. The codes documented in this report are preliminary and upon copper roller handler printing review may be revised to meet current compliance requirements. Milan Almonte MD 06/14/2022 9:20:54 AM This report has been signed electronically. Number of Addenda: 0 Note Initiated On: 06/14/2022 8:48 AM
== END 2022-06-14 10:30 | disposition home or self-care (01) ==
LOC: EN 08:02 → AC 08:03
PROVIDERS: Visit Provider Surgery
PROC: 0DJD8ZZ Inspection of Lower Intestinal Tract, Via Natural or Artificial Opening Endoscopic (ICD-10-PCS; CPT 45378; principal; 2022-06-14 08:55)
DX: Z12.11 Encounter for screening for malignant neoplasm of colon (principal); K63.89 Other specified diseases of intestine; I10 Essential (primary) hypertension; K62.1 Rectal polyp; Z78.0 Asymptomatic menopausal state; Z86.718 Personal history of other venous thrombosis and embolism; Z96.651 Presence of right artificial knee joint
CPT/HCPCS: 45385; 45380; 88305; J7120; J2405

== ENCOUNTER → 2023-01-17 | Outpatient (CLI) | payer OTHER, SELFPAY ==
--- NOTE | 2023-01-17 15:16 | BI_ITS ---
MAMMOGRAPHY - BILATERAL SCREENING REASON FOR EXAM: Female, 63 years old. Routine annual screening examination. PERTINENT HISTORY: Mother with breast cancer. Aunt with breast cancer. TECHNIQUE: Digital bilateral breast marli (3D mammographic acquisition) in the CC and MLO projections. 2-D mediolateral oblique (MLO) and craniocaudad (CC) views of both breasts were obtained. CAD: Full Field Digital Mammography with Computer Added Detection was performed. COMPARISON: Comparison is made with prior study dated November 08, 2021 and November 07, 2020. FINDINGS: Breast Composition: There are scattered areas of fibroglandular density. There are no dominant masses or suspicious calcifications. Stable small benign-appearing bilateral axillary lymph nodes. No other significant abnormalities are identified. There has been no significant change since the prior study. BI/SCRN MAMM (CAD)W/MARLI BILAT IMPRESSION: Stable bilateral screening mammogram. Yearly follow-up mammogram recommended. (A) ASSESSMENT CATEGORY: BIRADS Category 2: Benign. A letter regarding these results will be sent to the patient by the facility within 30 days. Approximately 10% of breast cancers are not detected by mammography. A normal mammogram should not delay biopsy of a clinically suspicious abnormality. [id number] Electronically Signed: Charly Varela MD at 13:14 EDT ,
== END | disposition home or self-care (01) ==
PROVIDERS: PCP Family Medicine; Referring Provider Obstetrics & Gynecology; Visit Provider Obstetrics & Gynecology
DX: Z12.31 Encounter for screening mammogram for malignant neoplasm of breast (principal)
CPT/HCPCS: 77063; 77067

== ENCOUNTER → 2023-03-27 | Outpatient (CLI) | payer OTHER, SELFPAY ==
[2023-03-27 07:34] LABS: Absolute Lymphocyte Count 3.73 X10^3/uL (0.83-4.51); Absolute Neutrophil Count 4.9 X10^3/uL (2.0-7.7); Basophil# 0.05 X10^3/uL; Basophil% 0.5 % (0-1); Eosinophil# 0.14 X10^3/uL; Eosinophils% 1.5 % (0-5); Hematocrit 40.5 % (37-47); Hemoglobin 13.3 g/dL (12.0-15.0); Lymphocyte # 3.73 X10^3/ul (0.83-4.51); Lymphocyte % 39.3 % (19-41); Mean Corp Hgb Conc 32.8 g/dL (32-36); Mean Corpuscular Hgb 29.4 pg (27.0-32.0); Mean Corpuscular Volume 89.6 fL (81-99); Mean Platelet Vol. 9.4 fl (6.2-12.0); Monocyte# 0.61 X10^3/uL; Monocyte% 6.4 % (0-10); NRBC Flagged by Analyzer 0 % (0-5); Neutrophil # 4.94 X10^3/uL (2.7-7.7); Neutrophil % 52.1 % (47-70); Platelet Count 282 K/mm3 (150-450); RBC Distribution Width CV 12.9 % (11.6-14.6); RBC Distribution Width SD 42.5 fl (35.1-43.9); Red Blood Count 4.52 M/mm3 (4.2-5.4); White Blood Count 9.5 K/mm3 (4.4-11.0)
[2023-03-27 08:07] LABS: Insulin 23.2 mU/L (2.6-37.6); Vitamin B12 567 pg/mL (211-911); Vitamin D,25 Hydroxy 34.8 ng/mL
[2023-03-27 08:08] LABS: Progesterone Level < 0.21 ng/mL (See Comment)
[2023-03-27 08:53] LABS: AST(SGOT) 18 U/L (15-37); Alanine Aminotransfer ALT/SGPT 41 U/L (13-56); Albumin, Serum 3.5 g/dL (3.2-5.0); Alkaline Phosphatase 59 U/L (45-117); Anion Gap 7 (5-15); BUN 18 mg/dL (7-18); BUN/Creat Ratio 34.2 RATIO (10-20); Calcium,Total 8.8 mg/dL (8.5-10.1); Chloride 109 mmol/L (98-107); Cholesterol 166 mg/dL (200); Creatinine, Serum 0.53 mg/dL (0.55-1.02); EST Glomerular Filtration Rate 126 mL/min (>60); Est Glom Filt Rate - Afr Amer 152 mL/min (>60); Estradiol < 11.0 pg/mL; Free T3 2.6 pg/mL (2.18-3.98); Globulin 3.4 g/dL (2.2-4.2); Glucose 124 mg/dL (74-106); High Density Lipoprotein 68 mg/dL; Potassium 3.5 mmol/L (3.5-5.1); Protein, Total 6.9 g/dL (6.4-8.2); Sodium Level 144 mmol/L (136-145); T4 Free Direct 1.02 ng/dL (0.76-1.46); Thyroid Stim Hormone (TSH) 0.68 uIU/mL (0.358-3.74); Triglycerides 95 mg/dL; Very Low Density Lipoprotein 19 mg/dL (5-40)
[2023-03-28 04:07] LABS: DHEA Sulfate 2.4 ug/dL (29.4-220.5)
== END | disposition home or self-care (01) ==
LOC: LAB 06:07
PROVIDERS: PCP Family Medicine; Referring Provider Specialist; Visit Provider Specialist
DX: N95.1 Menopausal and female climacteric states (principal); R53.83 Other fatigue; E78.5 Hyperlipidemia, unspecified; E55.9 Vitamin D deficiency, unspecified
CPT/HCPCS: 36415; 80053; 80061; 82306; 82607; 82627; 82670; 83525; 84144; 84403; 84439; 84443; 84481; 85025; 82626

== ENCOUNTER → 2023-05-13 | Outpatient (CLI) | payer OTHER, SELFPAY ==
[2023-05-13 08:27] LABS: Progesterone Level 4.41 ng/mL (See Comment)
[2023-05-13 08:28] LABS: Estradiol 59.1 pg/mL
[2023-05-14 04:07] LABS: DHEA Sulfate 77.6 ug/dL (29.4-220.5)
== END | disposition home or self-care (01) ==
PROVIDERS: PCP Family Medicine
DX: N95.1 Menopausal and female climacteric states (principal); E27.8 Other specified disorders of adrenal gland
CPT/HCPCS: 36415; 82627; 82670; 84144; 84403; 82626

== ENCOUNTER → 2024-01-22 | Outpatient (CLI) | payer OTHER, SELFPAY ==
--- NOTE | 2024-01-22 14:36 | BI_ITS ---
MAMMOGRAPHY - BILATERAL SCREENING REASON FOR EXAM: Female, 64 years old. Routine annual screening examination. PERTINENT HISTORY: Mother with breast cancer. Aunt with breast cancer. TECHNIQUE: Digital bilateral breast marli (3D mammographic acquisition) in the CC and MLO projections. 2-D mediolateral oblique (MLO) and craniocaudad (CC) views of both breasts were obtained. CAD: Full Field Digital Mammography with Computer Added Detection was performed. COMPARISON: Comparison is made with prior study January 17, 2023 and November 08, 2021. FINDINGS: Breast Composition: There are scattered areas of fibroglandular density. There are no dominant masses or suspicious calcifications. No other significant abnormalities are identified. There has been no significant change since the prior study. BI/SCRN MAMM (CAD)W/MARLI BILAT IMPRESSION: Stable bilateral screening mammogram. Yearly follow-up mammogram recommended. (A) ASSESSMENT CATEGORY: BIRADS Category 1: Negative. A letter regarding these results will be sent to the patient by the facility within 30 days. Approximately 10% of breast cancers are not detected by mammography. A normal mammogram should not delay biopsy of a clinically suspicious abnormality. [id number] Electronically Signed: Charly Varela MD at 8:34 EDT ,
== END | disposition home or self-care (01) ==
PROVIDERS: PCP Family Medicine; Referring Provider Obstetrics & Gynecology; Visit Provider Obstetrics & Gynecology
DX: Z12.31 Encounter for screening mammogram for malignant neoplasm of breast (principal); Z80.3 Family history of malignant neoplasm of breast
CPT/HCPCS: 77063; 77067

== ENCOUNTER → 2024-01-28 | Outpatient (CLI) | payer OTHER, SELFPAY ==
[2024-01-28 10:55] LABS: Absolute Lymphocyte Count 2.19 X10^3/uL (0.83-4.51); Absolute Neutrophil Count 4.8 X10^3/uL (2.0-7.7); Basophil# 0.06 X10^3/uL; Basophil% 0.8 % (0-1); Eosinophil# 0.22 X10^3/uL; Eosinophils% 2.9 % (0-5); Hematocrit 44.3 % (37-47); Hemoglobin 14.5 g/dL (12.0-15.0); Lymphocyte # 2.19 X10^3/ul (0.83-4.51); Lymphocyte % 28.7 % (19-41); Mean Corp Hgb Conc 32.7 g/dL (32-36); Mean Corpuscular Hgb 28.9 pg (27.0-32.0); Mean Corpuscular Volume 88.2 fL (81-99); Mean Platelet Vol. 9.2 fl (6.2-12.0); Monocyte# 0.38 X10^3/uL; NRBC Flagged by Analyzer 0 % (0-5); Neutrophil # 4.76 X10^3/uL (2.7-7.7); Neutrophil % 62.2 % (47-70); Platelet Count 307 K/mm3 (150-450); RBC Distribution Width CV 12.8 % (11.6-14.6); RBC Distribution Width SD 41.5 fl (35.1-43.9); Red Blood Count 5.02 M/mm3 (4.2-5.4); White Blood Count 7.6 K/mm3 (4.4-11.0)
[2024-01-28 11:15] LABS: Vitamin D,25 Hydroxy 74.5 ng/mL
[2024-01-28 11:21] LABS: ALB/GLOB Ratio 1.1 RATIO (0.9-2.4); AST(SGOT) 24 U/L (15-37); Alanine Aminotransfer ALT/SGPT 26 U/L (13-56); Albumin, Serum 3.8 g/dL (3.2-5.0); Alkaline Phosphatase 101 U/L (45-117); Anion Gap 5 (5-15); BUN 11 mg/dL (7-18); BUN/Creat Ratio 13.3 RATIO (10-20); Calcium,Total 9.5 mg/dL (8.5-10.1); Chloride 108 mmol/L (98-107); Cholesterol 180 mg/dL (200); Creatinine, Serum 0.82 mg/dL (0.55-1.02); EST Glomerular Filtration Rate 75 mL/min (>60); Est Glom Filt Rate - Afr Amer 90 mL/min (>60); Globulin 3.6 g/dL (2.2-4.2); Glucose 108 mg/dL (74-106); High Density Lipoprotein 46 mg/dL; Potassium 3.8 mmol/L (3.5-5.1); Protein, Total 7.4 g/dL (6.4-8.2); Sodium Level 141 mmol/L (136-145); Thyroid Stim Hormone (TSH) 1.14 uIU/mL (0.358-3.74); Triglycerides 106 mg/dL; Very Low Density Lipoprotein 21 mg/dL (5-40)
[2024-01-28 11:52] LABS: Hemoglobin A1c 5.7 % (3.8-5.6)
== END | disposition home or self-care (01) ==
LOC: PAVLAB 10:19
PROVIDERS: PCP Family Medicine; Referring Provider Obstetrics & Gynecology; Visit Provider Obstetrics & Gynecology
DX: Z13.29 Encounter for screening for other suspected endocrine disorder (principal); Z13.21 Encounter for screening for nutritional disorder; Z13.1 Encounter for screening for diabetes mellitus; Z13.220 Encounter for screening for lipoid disorders; Z13.0 Encounter for screening for diseases of the blood and blood-forming organs and certain disorders involving the immune mechanism
CPT/HCPCS: 36415; 80053; 80061; 82306; 83036; 84443; 85025

== ENCOUNTER → 2025-02-07 | Outpatient (CLI) | payer OTHER, SELFPAY ==
--- NOTE | 2025-02-07 15:45 | BI_ITS ---
EXAM: SCRN MAMM (CAD)W/MARLI BILAT DATE: 02/07/2025 CLINICAL HISTORY: F, Age 65 y/o , SCREEN FOR BREAST CANCER Mother with breast cancer. Aunt with breast cancer. BREAST CANCER RISK ASSESSMENT: Not assessed. TECHNIQUE: Bilateral screening digital breast tomosynthesis with 2D and 3D images. Computer aided detection. COMPARISON: Prior exam(s) dated January 22, 2024.. FINDINGS: TISSUE DENSITY: The breast tissue is composed of scattered areas of fibroglandular density. Bilateral Breast Mammographic Findings: No significant masses, calcifications or other abnormalities are identified. Stable benign-appearing fat containing axillary lymph nodes. No suspicious masses, areas of developing architectural distortion, or suspicious calcifications. There has been no significant interval change. BI/SCRN MAMM (CAD)W/MARLI BILAT IMPRESSION: Stable examination. OVERALL FINAL ASSESSMENT BI-RADS 2: BENIGN RECOMMEND ANNUAL MAMMOGRAPHIC SCREENING. RECOMMENDATION: Routine annual follow-up in 1 Year A letter with findings and recommendations will be mailed to the patient. Reading Location: [facility]
== END | disposition home or self-care (01) ==
LOC: OPBI 15:39
PROVIDERS: PCP Family Medicine; Referring Provider Obstetrics & Gynecology; Visit Provider Obstetrics & Gynecology
DX: Z12.31 Encounter for screening mammogram for malignant neoplasm of breast (principal)
CPT/HCPCS: 77063; 77067

== ENCOUNTER → 2025-05-20 | Outpatient (CLI) | payer OTHER, SELFPAY ==
[2025-05-20 10:19] LABS: Hematocrit 43.0 % (37-47); Hemoglobin 14.8 g/dL (12.0-15.0); Immature Granulocytes Count 0.020 X10^3/uL (0.0-0.0); Mean Corp Hgb Conc 34.4 g/dL (32-36); Mean Corpuscular Volume 85.5 fL (81-99); Mean Platelet Vol. 9.5 fl (6.2-12.0); NRBC Flagged by Analyzer 0 % (0-5); Platelet Count 304 K/mm3 (150-450); RBC Distribution Width CV 13.3 % (11.6-14.6); RBC Distribution Width SD 41.1 fl (35.1-43.9); Red Blood Count 5.03 M/mm3 (4.2-5.4); White Blood Count 6.8 K/mm3 (4.4-11.0)
[2025-05-20 11:21] LABS: AST(SGOT) 25 U/L (<=31); Alanine Aminotransfer ALT/SGPT 27 U/L (<=34); Albumin, Serum 4.3 g/dL (3.4-4.8); Alkaline Phosphatase 80 U/L (35-104); Anion Gap 12 (5-15); BUN 17 mg/dL (4-19); BUN/Creat Ratio 27.3 RATIO (10-20); Calcium,Total 9.5 mg/dL (7.6-11.0); Carbon Dioxide 23.3 mmol/L (21.0-32.0); Chloride 105 mmol/L (98-108); Cholesterol 175 mg/dL (<=200); Globulin 3.0 g/dL (2.2-4.2); Glucose 128 mg/dL (70-99); Low Density Lipoprotein Calc. 102 mg/dL; Potassium 4.4 mmol/L (3.3-5.1); Triglycerides 82 mg/dL; Very Low Density Lipoprotein 16 mg/dL (5-40); cholesterol:hdl ratio screen 3.09
== END | disposition home or self-care (01) ==
PROVIDERS: PCP Family Medicine; Visit Provider Obstetrics & Gynecology
DX: Z00.00 Encounter for general adult medical examination without abnormal findings (principal); Z13.1 Encounter for screening for diabetes mellitus; Z13.29 Encounter for screening for other suspected endocrine disorder; Z13.220 Encounter for screening for lipoid disorders
CPT/HCPCS: 36415; 80053; 80061; 83036; 84443; 85025